=== PATIENT | female | born 1950 | race Hispanic/Latino ===

== ENCOUNTER → 2017-09-29 | Outpatient (CLI) | payer OTHER | END | disposition home or self-care (01) | LOC: RAH 09:11 | PROVIDERS: ATTEND Family Medicine | DX: Z12.31 Encounter for screening mammogram for malignant neoplasm of breast (principal) | CPT/HCPCS: 77067 ==

== ENCOUNTER → 2018-10-07 | Outpatient (CLI) | payer OTHER | END | disposition home or self-care (01) | LOC: RAH 14:31 | PROVIDERS: ATTEND Family Medicine | DX: Z12.31 Encounter for screening mammogram for malignant neoplasm of breast (principal) | CPT/HCPCS: 77067 ==

== ENCOUNTER 2020-01-08 02:07 | Inpatient (IN) | payer OTHER ==
[~2020-01-08] VITALS: Ht 165.1 cm; Wt 76.3 kg
[2020-01-08 03:54] LABS: BASOPHILS % (AUTO) 0.2 % (0.0-5.0); HEMATOCRIT 35.6 % (36-48); LYMPHOCYTES % (AUTO) 4.9 % (21.0-51.0); MEAN CORPUSCULAR HEMOGLOBIN 30.3 pg (27.0-33.0); MEAN CORPUSCULAR HGB CONC 34.8 g/dL (32.0-36.0); MONOCYTES % (AUTO) 3.4 % (3.0-13.0); PLATELET COUNT (AUTO) 269 K/uL (130-400); RED BLOOD CELL COUNT(AUTO) 4.09 MIL/uL (4.00-5.50); RED CELL DISTRIBUTION WIDTH 12.2 % (11.0-15.5); WHITE BLOOD COUNT (AUTO) 19.2 K/uL (4.8-10.8)
[2020-01-08 04:05] LABS: INR 0.92 (0.85-1.15); PARTIAL THROMBOPLASTIN TIME 28.2 SEC (26.3-35.5)
[2020-01-08 04:12] LABS: ALBUMIN 2.8 g/dL (3.5-5.0); BILIRUBIN,TOTAL 0.7 mg/dL (0.2-1.0); TOTAL PROTEIN, SERUM 7.8 g/dL (6.0-8.3); TROPONIN I 0.06 ng/mL (0.00-0.06)
[2020-01-08 05:21] LABS: APPEARANCE,URINE Clear (CLEAR); BILIRUBIN,URINE Negative (NEGATIVE); COLOR,URINE Dark Yellow (YELLOW); GLUCOSE, URINE (UA) Negative (NEGATIVE); KETONES,URINE Trace mg/dL (NEGATIVE); LEUKOCYTE ESTERASE ,URINE Negative (NEGATIVE); NITRATE,URINE Negative (NEGATIVE); OCCULT BLOOD,URINE Negative (NEGATIVE); PROTEIN,URINE POS 2+ mg/dL (NEGATIVE)
[2020-01-08] MEDS ORDERED: DEXAMETHASONE SOD PHOSPHATE 10MG/ML 1ML VIAL ONE (05:43)
[2020-01-08] MEDS ORDERED: CEFTRIAXONE SODIUM 1 GM ONE (05:44)
[2020-01-08] MEDS ORDERED: AZITHROMYCIN 500MG+NS 250ML 250 ML IV ONE (05:44)
[2020-01-08 05:47] LABS: BACTERIA,URINE Few /HPF (None Seen); RBC,URINE 0-1 /HPF (0-1)
[2020-01-08] MEDS ORDERED: ENOXAPARIN SODIUM 40 MG/0.4 ML SYRINGE SQ ONE (06:03)
[2020-01-08] MEDS ORDERED: FAMOTIDINE 20MG TAB 20 MG TAB ONE (06:03)
[2020-01-08] MEDS: SODIUM CHLORIDE 0.9% 1000ML 1,000 ML IV SCH ×2 (07:15→20:35)
[2020-01-08] MEDS ORDERED: ONDANSETRON HCL 4 MG/2 ML VIAL IVP PRN (07:15)
[2020-01-08] MEDS ORDERED: ASPIRIN 81MG TAB.CHEW ONE (08:43)
[2020-01-08] MEDS: ASPIRIN 325 MG TABLET PO SCH (09:00)
[2020-01-08] MEDS: ASCORBIC ACID 500 MG TAB PO SCH (10:16)
[2020-01-08] MEDS ORDERED: ALBUTEROL INHALER 90MCG/INH IH ONE (10:29)
[2020-01-08] MEDS ORDERED: POTASSIUM CHLORIDE 20MEQ/100ML 100 ML IV PRN (12:00)
[2020-01-08] MEDS ORDERED: POTASSIUM CHLORIDE 10% ELIXIR 20 MEQ/15 ML UDCUP PO PRN (12:00)
[2020-01-08] MEDS: ALBUTEROL INHALER 90MCG/INH IH SCH ×2 (12:00→18:00)
[2020-01-08] MEDS ORDERED: LIDOCAINE HCL-MPF 1% 2ML VIAL IV PRN (12:00)
[2020-01-08] MEDS ORDERED: ASCORBIC ACID 500 MG TAB ONE (12:38)
[2020-01-08] MEDS ORDERED: POTASSIUM CHLORIDE 10MEQ/100ML 100 ML IV ONE (14:30)
[2020-01-08] MEDS ORDERED: POTASSIUM CHLORIDE 20 MEQ ERTAB PO ONE (17:48)
[2020-01-08] MEDS ORDERED: BENZONATATE 100 MG CAPSULE PO ONE (18:22)
--- NOTE | 2020-01-08 18:26 | NUR ---
INITIAL SW spoke with patient's sister, Kandace Johnston, [phone]. Patient lives with sister and two brothers. He has no home services. DME: [facility]. Patient is able to complete ADL's independently and drives. 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 PCP is Dr. Emmie Woodson. Pharmacy is [facility] in [place]. DCP is home. Addendum: 01/08/20 at 1828 by LEONARDA AUGUST SS Amended: Links added.
[2020-01-08] MEDS: ENOXAPARIN SODIUM 40 MG/0.4 ML SYRINGE SQ SCH (21:00)
[2020-01-09] MEDS: ALBUTEROL INHALER 90MCG/INH IH SCH ×4 (06:00→18:00)
[2020-01-09 07:50] LABS: CRP QUANTITATIVE 227.2 mg/L (0.00-9.0)
[2020-01-09] MEDS: ASPIRIN 325 MG TABLET PO SCH (09:00)
[2020-01-09] MEDS: ASCORBIC ACID 500 MG TAB PO SCH (09:00)
[2020-01-09] MEDS: ENOXAPARIN SODIUM 40 MG/0.4 ML SYRINGE SQ SCH ×2 (09:00→21:00)
[2020-01-09] MEDS: AZITHROMYCIN 500MG+NS 250ML 250 ML IV SCH (09:00)
[2020-01-09] MEDS: DEXAMETHASONE 4 MG TAB PO SCH (09:00)
[2020-01-09] MEDS: FAMOTIDINE 20MG TAB 20 MG TAB PO SCH (09:00)
[2020-01-09] MEDS ORDERED: ASCORBIC ACID 500 MG TAB ONE (09:20)
[2020-01-09] MEDS ORDERED: FAMOTIDINE 20MG TAB 20 MG TAB ONE (09:21)
[2020-01-09] MEDS ORDERED: DEXAMETHASONE 4 MG TAB ONE (09:21)
[2020-01-09] MEDS ORDERED: ASPIRIN 325 MG TABLET ONE (09:21)
[2020-01-09] MEDS ORDERED: ENOXAPARIN SODIUM 40 MG/0.4 ML SYRINGE SQ ONE ×2 (09:21→20:34)
[2020-01-09] MEDS ORDERED: AZITHROMYCIN 500MG+NS 250ML 250 ML IV ONE (09:21)
[2020-01-09] MEDS ORDERED: ACETAMINOPHEN 325 MG TAB ONE (09:29)
[2020-01-09] MEDS: SODIUM CHLORIDE 0.9% 1000ML 1,000 ML IV SCH ×2 (09:55→23:37)
[2020-01-09 12:34] LABS: BASOPHILS % (AUTO) 0.4 % (0.0-5.0); EOSINOPHILS % (AUTO) 0.5 % (0.0-8.0); HEMATOCRIT 40.6 % (36-48); LYMPHOCYTES % (AUTO) 5.5 % (21.0-51.0); MEAN CORPUSCULAR HEMOGLOBIN 30.2 pg (27.0-33.0); MEAN CORPUSCULAR HGB CONC 33.7 g/dL (32.0-36.0); MEAN CORPUSCULAR VOLUME 89.6 fL (79-99); MONOCYTES % (AUTO) 3.4 % (3.0-13.0); NEUTROPHILS % (AUTO) 87.9 % (40.0-77.0); PLATELET COUNT (AUTO) 287 K/uL (130-400); RED BLOOD CELL COUNT(AUTO) 4.53 MIL/uL (4.00-5.50); RED CELL DISTRIBUTION WIDTH 12.5 % (11.0-15.5); WHITE BLOOD COUNT (AUTO) 16.7 K/uL (4.8-10.8)
[2020-01-09 12:39] LABS: CREATININE 0.9 mg/dL (0.5-1.5); POTASSIUM 3.2 mmol/L (3.5-5.1)
[2020-01-09 12:44] LABS: ALBUMIN 2.5 g/dL (3.5-5.0); BILIRUBIN,TOTAL 0.7 mg/dL (0.2-1.0); TOTAL PROTEIN, SERUM 7.4 g/dL (6.0-8.3)
[2020-01-09] MEDS ORDERED: POTASSIUM CHLORIDE 20 MEQ ERTAB PO ONE (14:50)
[2020-01-09] MEDS: INSULIN HUMULIN R 100 UNIT/ML 3ML SQ SCH (21:00)
[2020-01-10] VITALS: BP 155/74
[2020-01-10] MEDS: ALBUTEROL INHALER 90MCG/INH IH SCH ×5 (00:06→23:45)
[2020-01-10] MEDS: POTASSIUM CHLORIDE 20 MEQ ERTAB PO PRN ×2 (01:04→05:27)
[2020-01-10 04:00] VITALS: BP 140/76
[2020-01-10 04:19] LABS: BASOPHILS % (AUTO) 0.4 % (0.0-5.0); HEMATOCRIT 34.8 % (36-48); LYMPHOCYTES % (AUTO) 4.8 % (21.0-51.0); MEAN CORPUSCULAR HEMOGLOBIN 30.3 pg (27.0-33.0); MEAN CORPUSCULAR HGB CONC 33.9 g/dL (32.0-36.0); MEAN CORPUSCULAR VOLUME 89.5 fL (79-99); MONOCYTES % (AUTO) 5.2 % (3.0-13.0); NEUTROPHILS % (AUTO) 85.5 % (40.0-77.0); PLATELET COUNT (AUTO) 266 K/uL (130-400); RED BLOOD CELL COUNT(AUTO) 3.89 MIL/uL (4.00-5.50); RED CELL DISTRIBUTION WIDTH 12.5 % (11.0-15.5); WHITE BLOOD COUNT (AUTO) 16.2 K/uL (4.8-10.8)
[2020-01-10 05:47] LABS: ALBUMIN 2.2 g/dL (3.5-5.0); BILIRUBIN,TOTAL 0.8 mg/dL (0.2-1.0); CREATININE 0.8 mg/dL (0.5-1.5); POTASSIUM 4.2 mmol/L (3.5-5.1); TOTAL PROTEIN, SERUM 5.8 g/dL (6.0-8.3)
[2020-01-10] MEDS: INSULIN HUMULIN R 100 UNIT/ML 3ML SQ SCH ×4 (06:12→20:43)
[2020-01-10 07:41] LABS: CRP QUANTITATIVE 164.5 mg/L (0.00-9.0)
[2020-01-10 08:00] VITALS: BP 138/69
[2020-01-10] MEDS: ASCORBIC ACID 500 MG TAB PO SCH (08:41)
[2020-01-10] MEDS: FAMOTIDINE 20MG TAB 20 MG TAB PO SCH (08:41)
[2020-01-10] MEDS: DEXAMETHASONE 4 MG TAB PO SCH (08:42)
[2020-01-10] MEDS: ENOXAPARIN SODIUM 40 MG/0.4 ML SYRINGE SQ SCH ×2 (08:42→22:00)
[2020-01-10] MEDS: AZITHROMYCIN 500MG+NS 250ML 250 ML IV SCH (08:42)
[2020-01-10] MEDS: ASPIRIN 325 MG TABLET PO SCH (08:43)
[2020-01-10 11:00] VITALS: BP 109/64
--- NOTE | 2020-01-10 15:07 | NUR ---
RD NOTIFICATION Pt positive COVID PNA. Clear Liquid diet order. Nonrebreather mask. WBC 16.2, Na 135, Alb 2.2. Vitamin C supplementation in place (500mg QD) Recommend Advance to Full Liquid diet order as medically feasible Recommend 60mL ProMod BID Recommend 500mg Vitamin C (BID). RD to continue to monitor. Please notify as additional nutrition concerns arise. Thank you.
[2020-01-10] MEDS: SODIUM CHLORIDE 0.9% 1000ML 1,000 ML IV SCH (15:37)
[2020-01-10 16:20] VITALS: BP 141/78
[2020-01-10 21:30] VITALS: BP 150/79
[2020-01-11] VITALS (51 sets, daily range): BP systolic 77–184; BP diastolic 44–131
[2020-01-11] MEDS: SODIUM CHLORIDE 0.9% 1000ML 1,000 ML IV SCH ×2 (00:01→11:52)
[2020-01-11] MEDS: ALBUTEROL INHALER 90MCG/INH IH SCH ×3 (05:52→18:00)
[2020-01-11] MEDS: INSULIN HUMULIN R 100 UNIT/ML 3ML SQ SCH ×3 (05:52→16:30)
[2020-01-11 05:53] LABS: BASOPHILS % (AUTO) 0.4 % (0.0-5.0); HEMATOCRIT 40.2 % (36-48); LYMPHOCYTES % (AUTO) 4.8 % (21.0-51.0); MEAN CORPUSCULAR HEMOGLOBIN 30.3 pg (27.0-33.0); MEAN CORPUSCULAR HGB CONC 33.6 g/dL (32.0-36.0); MEAN CORPUSCULAR VOLUME 90.1 fL (79-99); MONOCYTES % (AUTO) 4.9 % (3.0-13.0); NEUTROPHILS % (AUTO) 83.9 % (40.0-77.0); PLATELET COUNT (AUTO) 311 K/uL (130-400); RED BLOOD CELL COUNT(AUTO) 4.46 MIL/uL (4.00-5.50); RED CELL DISTRIBUTION WIDTH 12.7 % (11.0-15.5); WHITE BLOOD COUNT (AUTO) 18.5 K/uL (4.8-10.8)
[2020-01-11 06:30] LABS: ALBUMIN 2.1 g/dL (3.5-5.0); BILIRUBIN,TOTAL 0.9 mg/dL (0.2-1.0); CREATININE 0.8 mg/dL (0.5-1.5); POTASSIUM 4.1 mmol/L (3.5-5.1); TOTAL PROTEIN, SERUM 6.9 g/dL (6.0-8.3)
[2020-01-11 07:02] LABS: CRP QUANTITATIVE 224.4 mg/L (0.00-9.0)
[2020-01-11] MEDS: LABETALOL HCL 5 MG/ML 20ML VIAL IV PRN ×2 (07:05→08:14)
--- NOTE | 2020-01-11 07:05 | NUR ---
0655- pts BP = 162/89 and HR = 147; pts O2 sats 95%; Labetalol 10mg IV administered; pts vitals monitored before, during and after administration; pts vitals at 0700 after medication administration, BP = 165/77 and HR = 128; will continue to reassess pt and request for tele orders; report will be given to morning shift nurse; Tele monitor informed at this time; Ayanna Hitchcock RN
[2020-01-11] MEDS: ASPIRIN 325 MG TABLET PO SCH (08:38)
[2020-01-11] MEDS: FAMOTIDINE 20MG TAB 20 MG TAB PO SCH (08:38)
[2020-01-11] MEDS: AZITHROMYCIN 500MG+NS 250ML 250 ML IV SCH (08:39)
[2020-01-11] MEDS: LORAZEPAM 0.5 MG TABLET PO PRN (08:39)
[2020-01-11] MEDS: ACETAMINOPHEN 325 MG TAB PO PRN (08:39)
[2020-01-11] MEDS: ASCORBIC ACID 500 MG TAB PO SCH (08:39)
[2020-01-11] MEDS: DEXAMETHASONE 4 MG TAB PO SCH (08:40)
[2020-01-11] MEDS: ENOXAPARIN SODIUM 40 MG/0.4 ML SYRINGE SQ SCH ×2 (08:41→20:35)
[2020-01-11 09:35] LABS: ABG BASE EXCESS -3.8 mmol/L (-2.0-3.0); ABG HCO3 20.3 mmol/L (21.0-28.0); ABG OXYGEN SATURATION 80.2 % (95.0-99.0); ABG PCO2 35 mmHg (32-45)
--- NOTE | 2020-01-11 11:18 | NUR ---
PT INTUBATED BY ANESTHESIA, INTUBATION NOT ATTENDED BY RT. Addendum: 01/11/20 at 1301 by JOSEMANUEL WALLACE RT Amended: Links added.
--- NOTE | 2020-01-11 11:59 | NUR ---
Pt transferred to ICU after presenting with respiratory distress. Patient intubated on unit by [employer] and staff. Patient was initially placed on High flow oxygen after sating <80 on NRB. Her sat's gradually came up but did not go above 83% on High flow oxygen. ABGs done on unit and reviewed by primary team. Report called to Denia.
[2020-01-11] MEDS ORDERED: FENTANYL CITRATE PF 0.05 MG/ML 1,000 MCG in SODIUM CHLORIDE 0.9% 100 ML IVPB SCH (12:00)
[2020-01-11] MEDS ORDERED: PROPOFOL 1000 MG/100 ML IV PRN (12:45)
--- NOTE | 2020-01-11 12:45 | NUR ---
Referral to SS for Advance Directives Pt. is in ICU and intubated. SW spoke with pt's sister Kandace re-AD's in place. Kandace stated that pt. does not have formal AD's and that Kandace always makes the decisions for pt. when needed. CURTIS educated pt's sister on AD's, however, she stated that it was too much information for her and that medical staff could contact her if/when pt. is incapacitated to make decisions and she would do so herself. CM made aware.
[2020-01-11] MEDS: FENTANYL 2500MCG+NS 250ML 250 ML IV PRN ×2 (13:11→21:23)
[2020-01-11] MEDS: PHENYLEPHRINE HCL 100 MG in SODIUM CHLORIDE 0.9% 250 ML IV SCH (13:17)
[2020-01-11 17:15] LABS: INR 1.04 (0.85-1.15); PARTIAL THROMBOPLASTIN TIME 30.1 SEC (26.3-35.5); PROTHROMBIN TIME 11.2 SEC (9.6-11.6)
[2020-01-11] MEDS ORDERED: SODIUM CHLORIDE 0.9% 500ML 500 ML IV SCH ×2 (18:45→19:00)
[2020-01-12] VITALS (47 sets, daily range): BP systolic 83–149; BP diastolic 35–81
[2020-01-12] MEDS: FENTANYL 2500MCG+NS 250ML 250 ML IV PRN ×3 (01:04→14:49)
[2020-01-12 03:26] LABS: ABG BASE EXCESS -5.8 mmol/L (-2.0-3.0); ABG HCO3 21.1 mmol/L (21.0-28.0); ABG OXYGEN SATURATION 91.8 % (95.0-99.0); ABG PCO2 46 mmHg (32-45)
[2020-01-12] MEDS ORDERED: SODIUM CHLORIDE 0.9% 100 ML IV ONE (05:16)
[2020-01-12] MEDS: ALBUTEROL INHALER 90MCG/INH IH SCH ×4 (06:00→18:41)
[2020-01-12 07:30] LABS: MEAN CORPUSCULAR HEMOGLOBIN 30.4 pg (27.0-33.0); MEAN CORPUSCULAR HGB CONC 32.9 g/dL (32.0-36.0); MEAN CORPUSCULAR VOLUME 92.6 fL (79-99); PLATELET COUNT (AUTO) 235 K/uL (130-400); RED BLOOD CELL COUNT(AUTO) 3.78 MIL/uL (4.00-5.50); RED CELL DISTRIBUTION WIDTH 13.1 % (11.0-15.5); WHITE BLOOD COUNT (AUTO) 22.1 K/uL (4.8-10.8)
[2020-01-12] MEDS: INSULIN HUMULIN R 100 UNIT/ML 3ML SQ SCH ×4 (07:30→21:00)
[2020-01-12 07:51] LABS: ALBUMIN 1.8 g/dL (3.5-5.0); BILIRUBIN,TOTAL 0.7 mg/dL (0.2-1.0); CREATININE 0.9 mg/dL (0.5-1.5); MAGNESIUM 1.8 mg/dL (1.80-2.40); POTASSIUM 4.5 mmol/L (3.5-5.1); TOTAL PROTEIN, SERUM 6.2 g/dL (6.0-8.3)
[2020-01-12] MEDS: FAMOTIDINE 20MG TAB 20 MG TAB PO SCH (08:07)
[2020-01-12] MEDS: ASCORBIC ACID 500 MG TAB PO SCH (08:07)
[2020-01-12] MEDS: AZITHROMYCIN 500MG+NS 250ML 250 ML IV SCH (08:07)
[2020-01-12] MEDS: ENOXAPARIN SODIUM 40 MG/0.4 ML SYRINGE SQ SCH ×2 (08:07→20:26)
[2020-01-12] MEDS: ASPIRIN 325 MG TABLET PO SCH (08:07)
[2020-01-12] MEDS: LORAZEPAM 0.5 MG TABLET PO PRN (08:07)
[2020-01-12] MEDS: DEXAMETHASONE 4 MG TAB PO SCH (08:08)
[2020-01-12] MEDS ORDERED: MAGNESIUM 2GM PREMIX 50ML 50 ML IV PRN (08:45)
[2020-01-12 08:51] LABS: BAND NEUTROPHILS % (MANUAL) 2 % (0-2); LYMPHOCYTES % (MANUAL) 5 % (22-44); MAN.DIFF COMMENT-IMPRESSION MANUAL DIFFERENTIAL; MONOCYTES % (MANUAL) 3 % (2-9); PLATELET MORPHOLOGY COMMENT ADEQUATE; SEGMENTED NEUTROPHILS % 90 % (40-70)
--- NOTE | 2020-01-12 12:20 | NUR ---
RD FOLLOW UP Pt intubated requiring tube feedings. Recommend Continuous Pivot 1.5 initiated at 15mls/hr for 10 hours. Goal rate 40mls/hr. Recommend Flushes 150mL q6hrs. Faxed to [facility]C, ext [phone]. RN notified. monitored labs: WBC 22.1, Ca 8.2, AST 62, ALT 96, Alb 1.8. RD to continue to monitor. Please notify as additional nutrition concerns arise. Thank you.
[2020-01-12 17:00] LABS: BASOPHILS % (AUTO) 0.4 % (0.0-5.0); HEMATOCRIT 36.8 % (36-48); LYMPHOCYTES % (AUTO) 2.2 % (21.0-51.0); MEAN CORPUSCULAR HEMOGLOBIN 30.5 pg (27.0-33.0); MEAN CORPUSCULAR HGB CONC 31.8 g/dL (32.0-36.0); MEAN CORPUSCULAR VOLUME 95.8 fL (79-99); MONOCYTES % (AUTO) 1.8 % (3.0-13.0); NEUTROPHILS % (AUTO) 91.2 % (40.0-77.0); PLATELET COUNT (AUTO) 195 K/uL (130-400); RED BLOOD CELL COUNT(AUTO) 3.84 MIL/uL (4.00-5.50); RED CELL DISTRIBUTION WIDTH 13.4 % (11.0-15.5); WHITE BLOOD COUNT (AUTO) 22.8 K/uL (4.8-10.8)
[2020-01-12] MEDS: PROPOFOL 1000 MG/100 ML 100 ML IV SCH (18:05)
[2020-01-13] VITALS (18 sets, daily range): BP systolic 92–143; BP diastolic 55–74
[2020-01-13 03:57] LABS: MEAN CORPUSCULAR HEMOGLOBIN 30.2 pg (27.0-33.0); MEAN CORPUSCULAR HGB CONC 31.4 g/dL (32.0-36.0); MEAN CORPUSCULAR VOLUME 96.2 fL (79-99); PLATELET COUNT (AUTO) 203 K/uL (130-400); RED BLOOD CELL COUNT(AUTO) 3.64 MIL/uL (4.00-5.50); RED CELL DISTRIBUTION WIDTH 13.4 % (11.0-15.5); WHITE BLOOD COUNT (AUTO) 18.8 K/uL (4.8-10.8)
[2020-01-13 04:04] LABS: POTASSIUM 5.3 mmol/L (3.5-5.1)
[2020-01-13 04:05] LABS: PHOSPHORUS 4.9 mg/dL (2.5-4.9)
[2020-01-13 04:15] LABS: BAND NEUTROPHILS % (MANUAL) 2 % (0-2); LYMPHOCYTES % (MANUAL) 2 % (22-44); MAN.DIFF COMMENT-IMPRESSION MANUAL DIFFERENTIAL; MONOCYTES % (MANUAL) 3 % (2-9); PLATELET MORPHOLOGY COMMENT ADEQUATE; SEGMENTED NEUTROPHILS % 93 % (40-70)
[2020-01-13] MEDS: FENTANYL 2500MCG+NS 250ML 250 ML IV PRN ×4 (06:37→12:32)
[2020-01-13] MEDS: PHENYLEPHRINE HCL 100 MG in SODIUM CHLORIDE 0.9% 250 ML IV SCH (06:39)
[2020-01-13] MEDS: INSULIN HUMULIN R 100 UNIT/ML 3ML SQ SCH ×3 (07:30→16:30)
[2020-01-13] MEDS: ASCORBIC ACID 500 MG TAB PO SCH (07:53)
[2020-01-13] MEDS: FAMOTIDINE 20MG TAB 20 MG TAB PO SCH (07:54)
[2020-01-13] MEDS: ENOXAPARIN SODIUM 40 MG/0.4 ML SYRINGE SQ SCH ×2 (07:54→20:48)
[2020-01-13] MEDS: DEXAMETHASONE 4 MG TAB PO SCH (07:55)
[2020-01-13] MEDS: AZITHROMYCIN 500MG+NS 250ML 250 ML IV SCH (07:55)
[2020-01-13] MEDS: ASPIRIN 325 MG TABLET PO SCH (09:30)
[2020-01-13] MEDS ORDERED: SODIUM CHLORIDE 0.9% 250 ML IV ONE (12:15)
[2020-01-13] MEDS: PROPOFOL 1000 MG/100 ML 100 ML IV SCH (12:30)
[2020-01-13] MEDS: ALBUTEROL INHALER 90MCG/INH IH SCH (18:03)
[2020-01-14] VITALS (53 sets, daily range): BP systolic 111–159; BP diastolic 52–81
[2020-01-14 03:46] LABS: BASOPHILS % (AUTO) 0.2 % (0.0-5.0); HEMATOCRIT 34.2 % (36-48); LYMPHOCYTES % (AUTO) 1.8 % (21.0-51.0); MEAN CORPUSCULAR HEMOGLOBIN 30.5 pg (27.0-33.0); MEAN CORPUSCULAR HGB CONC 32.2 g/dL (32.0-36.0); MEAN CORPUSCULAR VOLUME 94.7 fL (79-99); MONOCYTES % (AUTO) 2.4 % (3.0-13.0); NEUTROPHILS % (AUTO) 92.5 % (40.0-77.0); NUCLEATED RED BLOOD CELLS 0.1 % (0.0-0.19); PLATELET COUNT (AUTO) 214 K/uL (130-400); RED BLOOD CELL COUNT(AUTO) 3.61 MIL/uL (4.00-5.50); RED CELL DISTRIBUTION WIDTH 13.1 % (11.0-15.5); WHITE BLOOD COUNT (AUTO) 17.7 K/uL (4.8-10.8)
[2020-01-14] MEDS: ACETAMINOPHEN 325 MG TAB PO PRN ×2 (06:50→07:52)
[2020-01-14] MEDS: INSULIN HUMULIN R 100 UNIT/ML 3ML SQ SCH ×3 (07:30→16:30)
[2020-01-14] MEDS: PROPOFOL 1000 MG/100 ML 100 ML IV SCH ×2 (07:34→20:51)
[2020-01-14 08:40] LABS: CREATININE 0.8 mg/dL (0.5-1.5); MAGNESIUM 2.8 mg/dL (1.80-2.40); PHOSPHORUS 2.9 mg/dL (2.5-4.9); POTASSIUM 5.3 mmol/L (3.5-5.1)
[2020-01-14] MEDS: ENOXAPARIN SODIUM 40 MG/0.4 ML SYRINGE SQ SCH ×2 (09:40→20:49)
[2020-01-14] MEDS: ASCORBIC ACID 500 MG TAB PO SCH (09:41)
[2020-01-14 09:42] LABS: ABG BASE EXCESS -2.4 mmol/L (-2.0-3.0); ABG HCO3 23.8 mmol/L (21.0-28.0); ABG OXYGEN SATURATION 99.2 % (95.0-99.0); ABG PCO2 46 mmHg (32-45)
[2020-01-14] MEDS: FENTANYL 2500MCG+NS 250ML 250 ML IV PRN ×2 (09:42→20:52)
[2020-01-14] MEDS: AZITHROMYCIN 500MG+NS 250ML 250 ML IV SCH (09:43)
[2020-01-14] MEDS: FAMOTIDINE 20MG TAB 20 MG TAB PO SCH (09:44)
[2020-01-14] MEDS: ASPIRIN 325 MG TABLET PO SCH (09:44)
[2020-01-14] MEDS: DEXAMETHASONE 4 MG TAB PO SCH (09:45)
[2020-01-14] MEDS: ALBUTEROL INHALER 90MCG/INH IH SCH (18:00)
[2020-01-14] MEDS: LORAZEPAM 0.5 MG TABLET PO PRN (20:49)
[2020-01-15] VITALS (79 sets, daily range): BP systolic 99–143; BP diastolic 49–80
[2020-01-15] MEDS: INSULIN HUMULIN R 100 UNIT/ML 3ML SQ SCH ×4 (07:30→22:15)
[2020-01-15] MEDS: DEXAMETHASONE 4 MG TAB PO SCH (09:21)
[2020-01-15] MEDS: PROPOFOL 1000 MG/100 ML 100 ML IV SCH ×2 (09:22→22:19)
[2020-01-15] MEDS: FAMOTIDINE 20MG TAB 20 MG TAB PO SCH (09:23)
[2020-01-15] MEDS: ASCORBIC ACID 500 MG TAB PO SCH (09:23)
[2020-01-15] MEDS: ASPIRIN 325 MG TABLET PO SCH (09:23)
[2020-01-15] MEDS: ENOXAPARIN SODIUM 40 MG/0.4 ML SYRINGE SQ SCH ×2 (09:24→22:12)
[2020-01-15] MEDS: AZITHROMYCIN 500MG+NS 250ML 250 ML IV SCH (09:24)
[2020-01-15] MEDS: ALBUTEROL INHALER 90MCG/INH IH SCH (17:52)
[2020-01-15] MEDS: FENTANYL 2500MCG+NS 250ML 250 ML IV PRN (18:44)
[2020-01-16] VITALS (57 sets, daily range): BP systolic 91–176; BP diastolic 46–91
[2020-01-16] MEDS: ACETAMINOPHEN 325 MG TAB PO PRN ×2 (01:48→12:50)
[2020-01-16] MEDS: ALBUTEROL INHALER 90MCG/INH IH SCH ×2 (02:06→06:49)
[2020-01-16] MEDS: FENTANYL 2500MCG+NS 250ML 250 ML IV PRN ×3 (03:23→20:54)
[2020-01-16 04:03] LABS: ABG BASE EXCESS 0.5 mmol/L (-2.0-3.0); ABG HCO3 25.4 mmol/L (21.0-28.0); ABG OXYGEN SATURATION 81.2 % (95.0-99.0); ABG PCO2 42 mmHg (32-45)
[2020-01-16] MEDS ORDERED: FUROSEMIDE 10 MG/ML 2ML VIAL ONE (05:21)
[2020-01-16 05:26] LABS: BASOPHILS % (AUTO) 0.2 % (0.0-5.0); EOSINOPHILS % (AUTO) 0.1 % (0.0-8.0); HEMATOCRIT 35.9 % (36-48); LYMPHOCYTES % (AUTO) 1.8 % (21.0-51.0); MEAN CORPUSCULAR HEMOGLOBIN 30.3 pg (27.0-33.0); MEAN CORPUSCULAR HGB CONC 32.3 g/dL (32.0-36.0); MEAN CORPUSCULAR VOLUME 93.7 fL (79-99); NEUTROPHILS % (AUTO) 94.4 % (40.0-77.0); NUCLEATED RED BLOOD CELLS 0.2 % (0.0-0.19); PLATELET COUNT (AUTO) 188 K/uL (130-400); RED BLOOD CELL COUNT(AUTO) 3.83 MIL/uL (4.00-5.50); RED CELL DISTRIBUTION WIDTH 13.1 % (11.0-15.5); WHITE BLOOD COUNT (AUTO) 16.8 K/uL (4.8-10.8)
[2020-01-16] MEDS: FUROSEMIDE 10 MG/ML 2ML VIAL IV SCH (06:02)
[2020-01-16 06:12] LABS: ALBUMIN 1.5 g/dL (3.5-5.0); BILIRUBIN,DIRECT 1.8 mg/dL (0.0-0.3); BILIRUBIN,TOTAL 2.2 mg/dL (0.2-1.0); CREATININE 0.8 mg/dL (0.5-1.5); MAGNESIUM 2.3 mg/dL (1.80-2.40); PHOSPHORUS 2.6 mg/dL (2.5-4.9); POTASSIUM 4.9 mmol/L (3.5-5.1); TOTAL PROTEIN, SERUM 5.9 g/dL (6.0-8.3)
[2020-01-16] MEDS: INSULIN HUMULIN R 100 UNIT/ML 3ML SQ SCH (06:29)
[2020-01-16] MEDS: PROPOFOL 1000 MG/100 ML 100 ML IV SCH ×3 (06:41→20:54)
[2020-01-16] MEDS: ENOXAPARIN SODIUM 40 MG/0.4 ML SYRINGE SQ SCH ×2 (08:16→20:53)
[2020-01-16] MEDS: ASCORBIC ACID 500 MG TAB PO SCH (08:16)
[2020-01-16] MEDS: FAMOTIDINE 20MG TAB 20 MG TAB PO SCH (08:16)
[2020-01-16] MEDS: ASPIRIN 325 MG TABLET PO SCH (08:18)
[2020-01-16] MEDS: DEXAMETHASONE 4 MG TAB PO SCH (08:18)
[2020-01-16] MEDS: AZITHROMYCIN 500MG+NS 250ML 250 ML IV SCH (08:18)
[2020-01-16] MEDS: LORAZEPAM 0.5 MG TABLET PO PRN (13:18)
--- NOTE | 2020-01-16 14:46 | NUR ---
Shift Note Pt's sedation was out-new tubing and drugs hung. pt now sedated and resting comfortably with vital signs stable. No acute signs of distress noted. Pt does have a low grade temp-medicated with Tylenol x1-will reassess for effectiveness. Given 0.5 of Lorazepam for anxiety. HR in the 110s. 5cc of residual noted from OGT- new tubing and feeding in place. Pt suctioned and oral care given. made rounds. Sister updated regarding pt's status. Will continue to monitor.
[2020-01-16] MEDS: MIDAZOLAM 50MG-0.9% NS 50ML 50 ML BAG IV SCH (20:52)
[2020-01-16 23:03] LABS: ABG BASE EXCESS 1.7 mmol/L (-2.0-3.0); ABG HCO3 26.9 mmol/L (21.0-28.0); ABG OXYGEN SATURATION 89.4 % (95.0-99.0); ABG PCO2 44 mmHg (32-45)
[2020-01-16] MEDS ORDERED: IBUPROFEN 200 MG TAB PO PRN (23:30)
[2020-01-16] MEDS ORDERED: IBUPROFEN 600 MG TABLET ONE (23:32)
[2020-01-17] VITALS (98 sets, daily range): BP systolic 81–119; BP diastolic 35–64
[2020-01-17] MEDS ORDERED: METOPROLOL TARTRATE 25 MG TAB PO SCH
[2020-01-17] MEDS ORDERED: METOPROLOL TARTRATE 25 MG TAB ONE (00:01)
[2020-01-17] MEDS ORDERED: FUROSEMIDE 20 MG TABLET ONE (00:02)
--- NOTE | 2020-01-17 01:31 | NUR ---
Elevated HR apartment leasing manager provider notified regarding elevated hr in the 120s and temp. Ibuprofen ordered along with Metoprolol and Lasix. Will monitor for effectiveness
[2020-01-17 04:08] LABS: ABG HCO3 25.7 mmol/L (21.0-28.0); ABG PCO2 41 mmHg (32-45)
[2020-01-17 04:10] LABS: ABG BASE EXCESS 1.8 mmol/L (-2.0-3.0); ABG OXYGEN SATURATION 89.3 % (95.0-99.0); ABG PCO2 44 mmHg (32-45)
[2020-01-17] MEDS: FUROSEMIDE 10 MG/ML 2ML VIAL IV SCH (05:15)
[2020-01-17 05:50] LABS: BASOPHILS % (AUTO) 0.7 % (0.0-5.0); EOSINOPHILS % (AUTO) 0.1 % (0.0-8.0); HEMATOCRIT 34.2 % (36-48); LYMPHOCYTES % (AUTO) 3.4 % (21.0-51.0); MEAN CORPUSCULAR HEMOGLOBIN 29.9 pg (27.0-33.0); MEAN CORPUSCULAR HGB CONC 31.9 g/dL (32.0-36.0); MONOCYTES % (AUTO) 1.1 % (3.0-13.0); NUCLEATED RED BLOOD CELLS 0.2 % (0.0-0.19); PLATELET COUNT (AUTO) 144 K/uL (130-400); RED BLOOD CELL COUNT(AUTO) 3.64 MIL/uL (4.00-5.50); RED CELL DISTRIBUTION WIDTH 13.2 % (11.0-15.5); WHITE BLOOD COUNT (AUTO) 14.1 K/uL (4.8-10.8)
[2020-01-17 06:10] LABS: ALBUMIN 1.3 g/dL (3.5-5.0); BILIRUBIN,TOTAL 1.6 mg/dL (0.2-1.0); CREATININE 1.1 mg/dL (0.5-1.5); MAGNESIUM 2.4 mg/dL (1.80-2.40); PHOSPHORUS 3.5 mg/dL (2.5-4.9); POTASSIUM 5.3 mmol/L (3.5-5.1); TOTAL PROTEIN, SERUM 5.6 g/dL (6.0-8.3)
[2020-01-17] MEDS: MIDAZOLAM 50MG-0.9% NS 50ML 50 ML BAG IV SCH ×2 (07:23→11:39)
[2020-01-17] MEDS: PROPOFOL 1000 MG/100 ML 100 ML IV SCH ×2 (07:24→11:46)
[2020-01-17] MEDS: INSULIN HUMULIN R 100 UNIT/ML 3ML SQ SCH ×2 (07:26→11:30)
[2020-01-17] MEDS: ENOXAPARIN SODIUM 40 MG/0.4 ML SYRINGE SQ SCH (08:25)
[2020-01-17] MEDS: DEXAMETHASONE 4 MG TAB PO SCH (08:25)
[2020-01-17] MEDS: AZITHROMYCIN 500MG+NS 250ML 250 ML IV SCH (08:26)
[2020-01-17] MEDS: ASPIRIN 325 MG TABLET PO SCH (08:26)
[2020-01-17] MEDS: ASCORBIC ACID 500 MG TAB PO SCH (08:28)
[2020-01-17] MEDS: FAMOTIDINE 20MG TAB 20 MG TAB PO SCH (08:29)
[2020-01-17] MEDS: FUROSEMIDE 20 MG TABLET PO SCH ×3 (08:34→16:31)
[2020-01-17 09:53] LABS: ABG BASE EXCESS -2.1 mmol/L (-2.0-3.0); ABG HCO3 24.2 mmol/L (21.0-28.0); ABG OXYGEN SATURATION 89.8 % (95.0-99.0); ABG PCO2 47 mmHg (32-45)
[2020-01-17] MEDS: FENTANYL 2500MCG+NS 250ML 250 ML IV PRN ×4 (11:39→12:50)
[2020-01-17] MEDS: ALBUTEROL INHALER 90MCG/INH IH SCH (11:40)
[2020-01-17] MEDS: ACETAMINOPHEN 325 MG TAB PO PRN ×2 (12:26→16:32)
[2020-01-17] MEDS ORDERED: SODIUM POLYSTYRENE SULFONATE 15 GM/60 ML ML PO SCH (15:15)
[2020-01-17] MEDS ORDERED: CEFEPIME HCL 2 GM VIAL IVP SCH (16:45)
[2020-01-17] MEDS: IBUPROFEN 400 MG TABLET PO PRN ×2 (16:50→21:15)
[2020-01-17] MEDS ORDERED: IOHEXOL 350 MG/ML 100ML INFUS..BTL IV ONE (16:54)
[2020-01-17] MEDS ORDERED: FUROSEMIDE 10 MG/ML 2ML VIAL IV STA (17:30)
[2020-01-17] MEDS ORDERED: ROCURONIUM BROMIDE 250 MG in SODIUM CHLORIDE 0.9% 250 ML IV SCH (17:30)
[2020-01-17] MEDS ORDERED: CISATRACURIUM BESYLATE 2 MG/ML 10ML VIAL IVP STA (17:37)
[2020-01-17] MEDS ORDERED: ROCURONIUM BROMIDE 100 MG in SODIUM CHLORIDE 0.9% 100 ML IV SCH (19:30)
[2020-01-17 21:11] LABS: APPEARANCE,URINE CLOUDY (CLEAR); BILIRUBIN,URINE NEGATIVE (NEGATIVE); COLOR,URINE YELLOW (YELLOW); GLUCOSE, URINE (UA) NEGATIVE (NEGATIVE); KETONES,URINE NEGATIVE (NEGATIVE); LEUKOCYTE ESTERASE ,URINE NEGATIVE (NEGATIVE); NITRATE,URINE NEGATIVE (NEGATIVE); OCCULT BLOOD,URINE NEGATIVE (NEGATIVE); PROTEIN,URINE NEGATIVE (NEGATIVE); UROBILINOGEN,URINE 0.2 mg/dL (0.2-1.0)
[2020-01-17 21:18] LABS: AMORPHOUS SEDIMENT,UR Moderate /LPF (None Seen); BACTERIA,URINE Few /HPF (None Seen); RBC,URINE 0-1 /HPF (0-1); SQUAMOUS EPITHELIAL CELL,UR Few /HPF (0-2); WBC,URINE 0-1 /HPF (0-1); YEAST,URINE BUDDING Few /HPF (None Seen)
--- NOTE | 2020-01-17 22:30 | NUR ---
HR, Sats and BP faculty i on call medical assistant MD notified regarding pt's elevated HR inthe 15s-160s, Sats inthe 80s and high 70s. BP SBP 80-70 and DBP 40s and 30s. Instructed to give Eduardo 50mg bolus and initiate drip. Respiratory to increase PEEP to 12. Sputum, urine, and blood cultures collected and sent to lab. Ct Angio of Chest complete- results were negative for PE- notified MD. Kayexalate given. Diprivan, Rocuronium, Vewrsed, Victor M, and Fent titrated in order to maintain sedated and MAP.
[2020-01-18] VITALS (93 sets, daily range): BP systolic 59–122; BP diastolic 34–56
[2020-01-18] MEDS ORDERED: NOREPINEPHRINE 4MG/NS 250ML 250 ML IV ONE (00:04)
[2020-01-18] MEDS: ACETAMINOPHEN 325 MG TAB PO PRN ×2 (00:24→13:55)
[2020-01-18] MEDS: INSULIN HUMULIN R 100 UNIT/ML 3ML SQ SCH ×2 (00:25→21:00)
[2020-01-18] MEDS: ALBUTEROL INHALER 90MCG/INH IH SCH ×4 (00:28→23:32)
[2020-01-18] MEDS: CEFEPIME HCL 1 GM VIAL IVP SCH ×2 (01:54→17:38)
[2020-01-18 03:50] LABS: BASOPHILS % (AUTO) 1.3 % (0.0-5.0); EOSINOPHILS % (AUTO) 4.3 % (0.0-8.0); HEMATOCRIT 37.4 % (36-48); LYMPHOCYTES % (AUTO) 7.6 % (21.0-51.0); MEAN CORPUSCULAR HEMOGLOBIN 30.4 pg (27.0-33.0); MEAN CORPUSCULAR HGB CONC 30.7 g/dL (32.0-36.0); MEAN CORPUSCULAR VOLUME 98.9 fL (79-99); MONOCYTES % (AUTO) 2.3 % (3.0-13.0); NEUTROPHILS % (AUTO) 83.8 % (40.0-77.0); NUCLEATED RED BLOOD CELLS 4.1 % (0.0-0.19); PLATELET COUNT (AUTO) 133 K/uL (130-400); RED BLOOD CELL COUNT(AUTO) 3.78 MIL/uL (4.00-5.50); RED CELL DISTRIBUTION WIDTH 14.2 % (11.0-15.5); WHITE BLOOD COUNT (AUTO) 5.6 K/uL (4.8-10.8)
[2020-01-18 04:07] LABS: ALBUMIN 1.2 g/dL (3.5-5.0); BILIRUBIN,TOTAL 2.2 mg/dL (0.2-1.0); CREATININE 1.6 mg/dL (0.5-1.5); MAGNESIUM 2.5 mg/dL (1.80-2.40); POTASSIUM 5.8 mmol/L (3.5-5.1); TOTAL PROTEIN, SERUM 5.9 g/dL (6.0-8.3)
[2020-01-18] MEDS: DOXYCYCLINE 100MG+NS 250ML 250 ML IV SCH ×2 (04:42→17:38)
[2020-01-18] MEDS: FUROSEMIDE 10 MG/ML 2ML VIAL IV SCH ×2 (04:42→22:15)
[2020-01-18 04:51] LABS: ABG BASE EXCESS -7.3 mmol/L (-2.0-3.0); ABG HCO3 22.8 mmol/L (21.0-28.0); ABG OXYGEN SATURATION 77.2 % (95.0-99.0); ABG PCO2 66 mmHg (32-45)
[2020-01-18 05:16] LABS: ABG BASE EXCESS -7.2 mmol/L (-2.0-3.0); ABG HCO3 22.9 mmol/L (21.0-28.0); ABG OXYGEN SATURATION 77.6 % (95.0-99.0); ABG PCO2 67 mmHg (32-45)
[2020-01-18] MEDS: FENTANYL 2500MCG+NS 250ML 250 ML IV PRN (06:05)
[2020-01-18] MEDS: MIDAZOLAM 50MG-0.9% NS 50ML 50 ML BAG IV SCH ×3 (06:05→17:38)
[2020-01-18] MEDS: ENOXAPARIN SODIUM 80 MG/0.8 ML SQ SCH ×2 (06:11→17:39)
--- NOTE | 2020-01-18 07:14 | NUR ---
TOF 2/4 TOF 2/4 AT 2MA
[2020-01-18] MEDS: NOREPINEPHRINE 4MG/NS 250ML 250 ML IV SCH ×2 (08:13→17:37)
[2020-01-18] MEDS: DEXAMETHASONE 4 MG TAB PO SCH (08:13)
[2020-01-18] MEDS: ASPIRIN 325 MG TABLET PO SCH (08:14)
[2020-01-18] MEDS: ASCORBIC ACID 500 MG TAB PO SCH (08:14)
[2020-01-18] MEDS: FAMOTIDINE 20MG TAB 20 MG TAB PO SCH (08:14)
[2020-01-18] MEDS: PROPOFOL 1000 MG/100 ML 100 ML IV SCH (17:38)
--- NOTE | 2020-01-18 19:14 | NUR ---
Rectal tube placed per [employer] orders. Notified staff to prone pt and "leave prone" per Tammy SALDIVAR. Several attempts made to wean off Diprivan- pt was not able to tolerate. Notified Hospitalist staff. Addendum: 01/18/20 at 1917 by KENISHA PERRY RN RN Amended: Links added.
[2020-01-18] MEDS ORDERED: NOREPINEPHRINE BITARTRATE 32 MG in SODIUM CHLORIDE 0.9% 250 ML IV PRN (20:45)
[2020-01-18] MEDS ORDERED: FUROSEMIDE 10 MG/ML 2ML VIAL IV SCH (22:15)
[2020-01-19] VITALS (40 sets, daily range): BP systolic 87–141; BP diastolic 39–55
[2020-01-19] MEDS: MIDAZOLAM 50MG-0.9% NS 50ML 50 ML BAG IV SCH ×3 (00:29→09:44)
[2020-01-19] MEDS: PROPOFOL 1000 MG/100 ML 100 ML IV SCH (00:31)
[2020-01-19] MEDS: CEFEPIME HCL 1 GM VIAL IVP SCH ×3 (02:18→09:27)
--- NOTE | 2020-01-19 03:43 | NUR ---
STATUS UPDATE PT REMAINS INTUBATED AND SEDATED. TOF 2/4 AT 2MA. PT UOP DECREASED AND BENCHMARK MEDICAL VIDEOGRAPHER NOTIFIED SEE NEW ORDERS FOR DETAILS. PT REMAINS ON LEVO, TASH, PROPOFOL, FENTANYL, VERSED, AND FAITH GTTS. ETT POSITIONED CHECKED, VENT SETTINGS VERIFIED. LUNG SOUNDS RHONCHI AND CRACKLES IN THE BASES. CAP REFILL SLOW AND DISCOLORED SEE NURSING ASSESSMENT FOR DETAILS. ST ON MONITOR 120-140'S SPO2 REMAINS LOW. PT PRONED AT 01/18/2020 2100. ONGOING MONITORING CONTINUES
[2020-01-19] MEDS: DOXYCYCLINE 100MG+NS 250ML 250 ML IV SCH (03:59)
[2020-01-19 04:16] LABS: CREATININE 2.8 mg/dL (0.5-1.5)
[2020-01-19 04:19] LABS: POTASSIUM 6.3 mmol/L (3.5-5.1)
[2020-01-19 04:36] LABS: ABG BASE EXCESS -12.9 mmol/L (-2.0-3.0); ABG HCO3 18.1 mmol/L (21.0-28.0); ABG PCO2 64 mmHg (32-45)
[2020-01-19] MEDS ORDERED: DEXTROSE 10%-WATER 1,000 ML IV SCH (05:45)
[2020-01-19] MEDS ORDERED: 1/2 NORMAL SALINE 1,000 ML IV SCH (05:45)
[2020-01-19] MEDS: ENOXAPARIN SODIUM 80 MG/0.8 ML SQ SCH (05:55)
[2020-01-19] MEDS: ALBUTEROL INHALER 90MCG/INH IH SCH (06:00)
[2020-01-19] MEDS ORDERED: DEXTROSE 10%-WATER 1,000 ML IV ONE (06:25)
[2020-01-19] MEDS ORDERED: SODIUM BICARB 50MEQ 50ML VIAL ONE (06:26)
[2020-01-19] MEDS ORDERED: CALCIUM GLUCONATE 1 GM/10 ML VIAL IV ONE (06:27)
[2020-01-19] MEDS ORDERED: SODIUM BICARB 50MEQ 50ML VIAL IV SCH (07:16)
[2020-01-19] MEDS ORDERED: CALCIUM GLUCONATE 1 GM/10 ML VIAL IV SCH (07:17)
[2020-01-19] MEDS: INSULIN HUMULIN R 100 UNIT/ML 3ML SQ SCH ×2 (07:30→11:30)
[2020-01-19 07:43] LABS: BASOPHILS % (AUTO) 0.9 % (0.0-5.0); EOSINOPHILS % (AUTO) 0.1 % (0.0-8.0); HEMATOCRIT 31.8 % (36-48); LYMPHOCYTES % (AUTO) 4.2 % (21.0-51.0); MEAN CORPUSCULAR HEMOGLOBIN 30.5 pg (27.0-33.0); MEAN CORPUSCULAR HGB CONC 30.2 g/dL (32.0-36.0); MONOCYTES % (AUTO) 5.5 % (3.0-13.0); NEUTROPHILS % (AUTO) 88.8 % (40.0-77.0); NUCLEATED RED BLOOD CELLS 12.2 % (0.0-0.19); PLATELET COUNT (AUTO) 46 K/uL (130-400); RED BLOOD CELL COUNT(AUTO) 3.15 MIL/uL (4.00-5.50); RED CELL DISTRIBUTION WIDTH 15.2 % (11.0-15.5); WHITE BLOOD COUNT (AUTO) 7.9 K/uL (4.8-10.8)
[2020-01-19] MEDS ORDERED: SODIUM POLYSTYRENE SULFONATE 15 GM/60 ML ML NG SCH (08:45)
[2020-01-19] MEDS ORDERED: DEXTROSE 50%-WATER 25 GM/50 ML VIAL IV SCH (09:15)
[2020-01-19] MEDS ORDERED: INSULIN HUMULIN R 100 UNIT/ML 3ML IV SCH (09:15)
[2020-01-19] MEDS: DEXAMETHASONE 4 MG TAB PO SCH (09:27)
[2020-01-19] MEDS: ASCORBIC ACID 500 MG TAB PO SCH (09:27)
[2020-01-19] MEDS: FAMOTIDINE 20MG TAB 20 MG TAB PO SCH (09:27)
[2020-01-19] MEDS ORDERED: METOPROLOL TARTRATE 1 MG/ML 5ML VIAL IV ONE (09:42)
[2020-01-19] MEDS: PHENYLEPHRINE HCL 100 MG in SODIUM CHLORIDE 0.9% 250 ML IV SCH (09:44)
[2020-01-19] MEDS ORDERED: METOPROLOL TARTRATE 1 MG/ML 5ML VIAL IV SCH (09:45)
[2020-01-19 09:47] LABS: BAND NEUTROPHILS % (MANUAL) 30 % (0-2); EOSINOPHILS % (MANUAL) 1 % (1-6); LYMPHOCYTES % (MANUAL) 8 % (22-44); MAN.DIFF COMMENT-IMPRESSION MANUAL DIFFERENTIAL; METAMYELOCYTES % 2 % (0-0); MONOCYTES % (MANUAL) 22 % (2-9); MYELOCYTES % 4 % (0-0); SEGMENTED NEUTROPHILS % 33 % (40-70)
[2020-01-19] MEDS ORDERED: METOPROLOL TARTRATE 1 MG/ML 5ML VIAL IV PRN (10:00)
[2020-01-19] MEDS ORDERED: DEXTROSE 50%-WATER 50 ML DISP.SYRIN IV ONE (10:12)
[2020-01-19 10:54] LABS: ABG OXYGEN SATURATION 75.7 % (95.0-99.0); ABG PCO2 64 mmHg (32-45)
[2020-01-19] MEDS ORDERED: SODIUM POLYSTYRENE SULFONATE 15 GM/60 ML ML RC PRN (12:45)
--- NOTE | 2020-01-19 13:13 | NUR ---
Family communication pt's sister, Kandace Johnston, reports by phone that the family has talked and come to the decision that they would like pt to "go in peace". Kandace Johnston requests withdrawal of life support and initiation of comfort measures only. Request witnessed and documented. Primary physician notified.
[2020-01-19] MEDS ORDERED: MORPHINE SULFATE 2 MG/ML 1ML SYG IM PRN (13:30)
[2020-01-19] MEDS ORDERED: LORAZEPAM 2 MG/ML 1 ML VIAL IM PRN (13:30)
[2020-01-19] MEDS ORDERED: HALOPERIDOL LACTATE 5 MG/ML VIAL IV PRN (13:30)
[2020-01-19] MEDS ORDERED: FENTANYL 2500MCG+NS 250ML 250 ML IV SCH (13:45)
--- NOTE | 2020-01-19 15:20 | NUR ---
Documentation completed Admission database was completed and information was given by Kandace Johnston (sister).
[2020-01-19] MEDS ORDERED: LORAZEPAM 2 MG/ML 1 ML VIAL IVP PRN (15:30)
[2020-01-19] MEDS ORDERED: MORPHINE SULFATE 2 MG/ML 1ML SYG IV PRN (15:30)
[2020-01-19] MEDS ORDERED: MIDAZOLAM 100MG-0.9% NS 100ML 100 ML IV SCH (18:15)
== END 2020-01-19 15:23 | disposition expired | DRG 870 ==
LOC: EDH 02:07 → EDHIP 05:21 → 4CH 01-09 23:52 → 2CH 01-11 11:59
PROVIDERS: ADMIT Internal Medicine; ATTEND Internal Medicine
PROC: 5A1955Z Respiratory Ventilation, Greater than 96 Consecutive Hours (ICD-10-PCS; principal; 2020-01-11)
PROC: 0BH17EZ Insertion of Endotracheal Airway into Trachea, Via Natural or Artificial Opening (ICD-10-PCS; 2020-01-11)
PROC: 02HV33Z Insertion of Infusion Device into Superior Vena Cava, Percutaneous Approach (ICD-10-PCS; 2020-01-13)
DX: A41.9 Sepsis, unspecified organism (principal); U07.1 COVID-19; J12.89 Other viral pneumonia; J96.01 Acute respiratory failure with hypoxia; R65.21 Severe sepsis with septic shock; E87.1 Hypo-osmolality and hyponatremia; N17.9 Acute kidney failure, unspecified; E87.4 Mixed disorder of acid-base balance; Z66 Do not resuscitate; I12.9 Hypertensive chronic kidney disease with stage 1 through stage 4 chronic kidney disease, or unspecified chronic kidney disease; N18.3 Chronic kidney disease, stage 3 (moderate); E87.6 Hypokalemia; D64.9 Anemia, unspecified; E87.5 Hyperkalemia
CPT/HCPCS: 36415; 36600; 71045; 71275; 76770; 80048; 80053; 80076; 81001; 82550; 82728; 82803; 82948; 83605; 83615; 83735; 83874; 83880; 84100; 84132; 84145; 84484; 85025; 85378; 85610; 85730; 86140; 86900; 86901; 87040; 87071; 87077; 87088; 87186; 87205; 93005; 94002; 94003; A4344; C1751; C1894; G0378; J0456; J0610; J0692; J0696; J1100; J1650; J1815; J1940; J2370; J2704; J3010; J3475; J3490; J7040; J7050; J7070; J8540; Q9967; U0003